=== PATIENT | female | born 1965 | race Caucasian/White ===

== ENCOUNTER 2017-02-23 09:01 | Day surgery (SDC) | payer BC ==
[2017-02-20 13:53] LABS: Basophils # (auto) 0 uL; Basophils % (auto) 0.8 % (0.0-2.0); Eosinophils # (auto) 0.4 uL; Eosinophils % (auto) 6.6 % (0.0-7.0); Hematocrit 42.3 % (36.0-46.0); Hemoglobin 14.3 g/dL (12.2-16.2); Lymphocytes # (auto) 1.6 uL; Lymphocytes % (auto) 28.9 % (10.0-50.0); Mean Corpuscular Hemoglobin 30.6 pg (28.0-32.0); Mean Corpuscular Hgb Conc. 33.7 g/dL (32.0-36.0); Mean Corpuscular Volume 90.7 fL (80.0-100.0); Mean Platelet Volume 8.7 fL (7.4-10.4); Monocytes # (auto) 0.3 uL; Monocytes % (auto) 5.2 % (0.0-12.0); Neutrophils # (auto) 3.3 uL; Neutrophils % (auto) 58.5 % (37.0-80.0); Platelet Count (auto) 238 10^3/uL (140-450); White Blood Cell 5.7 10^3/uL (4.4-10.8)
[2017-02-20 14:14] LABS: INR 0.97 (0.9-1.15); Partial Thromboplastin Time 25.9 sec (22.64-33.71); Prothrombin Time 10.6 sec (9.37-12.3)
[~2017-02-23] VITALS: Ht 157.5 cm; Wt 86.2 kg
[~2017-02-23 09:01] MED LIST: ALBU18 IN; DICY20TA66 PO; ONDA4TAB5 PO
[2017-02-23] MEDS ORDERED: SODIUM CHLORIDE LOCK 10 ML ONE (09:09)
[2017-02-23] MEDS ORDERED: diphenhdrAMINE HCL 50 MG/1 ML VL ONE (09:10)
[2017-02-23] MEDS: fentaNYL CITRATE 100 MCG/2 ML VL ONE ×3 (10:21→10:27)
[2017-02-23] MEDS: MIDAZOLAM HCL 5 MG/ML-1ML VIAL ONE ×3 (10:21→10:27)
[2017-02-23 11:25] VITALS: BP 121/63
== END 2017-02-23 11:35 | disposition home or self-care (01) ==
LOC: GI 09:01
PROVIDERS: ATTEND Internal Medicine Gastroenterology
DX: K63.89 Other specified diseases of intestine (principal); K64.8 Other hemorrhoids; K52.9 Noninfective gastroenteritis and colitis, unspecified; E66.9 Obesity, unspecified; Z90.710 Acquired absence of both cervix and uterus
CPT/HCPCS: 36415; 45380; 85025; 85610; 85730; J1200; J2250; J3010